=== PATIENT | female | born 1975 | race Caucasian/White ===

== ENCOUNTER 2017-07-22 21:54 | Emergency (ER) | payer OTHER ==
[2017-07-22 21:58] VITALS: BP 119/71; PULSE 105; RESP 18; TEMP 98.3
--- NOTE | 2017-07-22 22:23 | ED ---
General Adult HPI - General Chief complaint: Back Pain/Injury Stated complaint: Kidney infection Time Seen by Provider: 07/22/17 21:59 Source: patient, RN notes reviewed Mode of arrival: ambulatory Limitations: no limitations - History of Present Illness Initial comments: Patient is a 42-year-old female presents emergency room today with a chief complaint of possible urinary tract infection. Patient states her last today she's been experiencing some pain and discomfort in the left side. Does admit that she's had a foul-smelling urine. Patient does admit that the symptoms are consistent with urinary tract infections that she's had in the past. Patient denies any recorded temperatures at home. Patient denies any recent fever, chills, shortness of breath, chest pain, abdominal pain, nausea or vomiting, numbness or tingling, hematuria, constipation or diarrhea, headaches or visual changes, or any other complaints. - Related Data Home Medications Medication Instructions Recorded Confirmed Ibuprofen [Motrin] 800 mg PO Q8HR PRN 12/23/15 07/22/17 Cranberry Fruit Concentrate [Azo 250 mg PO DAILY PRN 07/22/17 07/22/17 Cranberry] Naproxen Sodium [Aleve] 220 mg PO BID PRN 07/22/17 07/22/17 Previous Rx's Medication Instructions Recorded Ciprofloxacin HCl [Cipro] 500 mg PO Q12HR #20 day 07/22/17 Phenazopyridine [Pyridium] 100 mg PO TID 3 Days day 07/22/17 Allergies Allergy/AdvReac Type Severity Reaction Status Date / Time No Known Allergies Allergy Verified 07/22/17 22:08 Review of Systems ROS Statement: Those systems with pertinent positive or pertinent negative responses have been documented in the HPI. ROS Other: All systems not noted in ROS Statement are negative. Past Medical History Past Medical History: No Reported History History of Any Multi-Drug Resistant Organisms: None Reported Past Surgical History: Orthopedic Surgery Additional Past Surgical History / Comment(s): LEFT ARM, JAW SURGERY Past Psychological History: Depression Smoking Status: Never smoker Past Alcohol Use History: Occasional Past Drug Use History: Marijuana General Exam - General Exam Comments Initial Comments: General: The patient is awake and alert, in no distress, and does not appear acutely ill. Eye: Pupils are equal, round and reactive to light, extra-ocular movements are intact. No nystagmus. There is normal conjunctiva bilaterally. No signs of icterus. Ears, nose, mouth and throat: There are moist mucous membranes and no oral lesions. Neck: The neck is supple, there is no tenderness or JVD. Cardiovascular: There is a regular rate and rhythm. No murmur, rub or gallop is appreciated. Respiratory: Lungs are clear to auscultation, respirations are non-labored, breath sounds are equal. No wheezes, stridor, rales, or rhonchi. Gastrointestinal: Soft, non-distended, non-tender abdomen without masses or organomegaly noted. There is no rebound or guarding present. No CVA tenderness. Bowel sounds are unremarkable. Musculoskeletal: Normal ROM, no tenderness. Strength 5/5. Sensation intact. Pulses equal bilaterally 2+. Neurological: A&O x 3. CN II-XII intact, There are no obvious motor or sensory deficits. Coordination appears grossly intact. Speech is normal. Skin: Skin is warm and dry and no rashes or lesions are noted. Psychiatric: Cooperative, appropriate mood & affect, normal judgment. Limitations: no limitations Course Vital Signs 07/22/17 21:56 Temperature 98.3 F Pulse Rate 105 H Respiratory 18 Rate Blood Pressure 119/71 O2 Sat by Pulse 99 Oximetry Medical Decision Making - Medical Decision Making Patient reexamined at this time shows no signs of distress. She is resting comfortable. Options of further lab work were discussed. Patient states she feels comfortable being treated with antibiotics outpatient. Patient will be given dose of Rocephin here the emergency room. Patient will be discharged on continued on antibiotics advised follow-up or returning if symptoms increase or worsen. She states understanding and is in agreement. - Lab Data Lab Results 07/22/17 Range/Units 22:05 Urine Color Dark [place] Urine Appearance Cloudy H (Clear) Urine pH 6.0 (5.0-8.0) Ur Specific [place] 1.016 (1.001-1.035) Urine Protein 1+ H (Negative) Urine Glucose (UA) Negative (Negative) Urine Ketones Trace H (Negative) Urine Blood Moderate H (Negative) Urine Nitrite Positive H (Negative) Urine Bilirubin 1+ H (Negative) Urine Urobilinogen 2.0 (<2.0) mg/dL Ur Leukocyte Esterase Large H (Negative) Urine RBC 4 (0-5) /hpf Urine WBC 98 H (0-5) /hpf Urine Bacteria Many H (None) /hpf Urine Mucus Occasional H (None) /hpf Disposition Clinical Impression: UTI (urinary tract infection) Disposition: HOME SELF-CARE Condition: Good Instructions: Urinary Tract Infection in Women (ED) Additional Instructions: Please use medication as discussed. Please follow-up with family doctor in the next 2 days of symptoms have not improved. Please return to emergency room if the symptoms increase or worsen or for any other concerns. Prescriptions: Ciprofloxacin HCl [Cipro] 500 mg PO Q12HR #20 day Phenazopyridine [Pyridium] 100 mg PO TID 3 Days day Referrals: None,Stated [Primary Care Provider] - 1-2 days Kami Isbell MD [STAFF PHYSICIAN] - 1-2 days Time of Disposition: 23:19
[2017-07-22 22:26] LABS: Appearance,Urine Cloudy (Clear); Bacteria,Urine Many /hpf; Bilirubin,Urine 1+ (Negative); Blood,Urine Moderate (Negative); Color,Urine Dark Orange; Glucose,Urine (UA) Negative (Negative); Ketones,Urine Trace (Negative); Leukocyte Esterase,Urine Large (Negative); Mucus,Urine Occasional /hpf; Nitrite,Urine Positive (Negative); Protein,Urine 1+ (Negative); RBC,Urine 4 /hpf (0-5); Specific Gravity,Urine 1.016 (1.001-1.035); WBC,Urine 98 /hpf (0-5)
[2017-07-22] MEDS ORDERED: cefTRIAXone 1,000 MG VIAL (IM USE) IM STA (23:17)
== END 2017-07-22 23:29 | disposition home or self-care (01) ==
LOC: EC 21:54 → SUPCPDRO 21:54 → EC 23:29
DX: N39.0 Urinary tract infection, site not specified (principal)
CPT/HCPCS: 81001; 87086; 96372; 99283